=== PATIENT | female | born 1970 | race Two or more races ===

== ENCOUNTER 2024-05-12 22:19 | Emergency (ER) | payer OTHER ==
[~2024-05-12] VITALS: Ht 157.5 cm; Wt 69.9 kg
[~2024-05-12 22:19] MED LIST: BENTYL 20 MG; OMEPRAZOLE20 MG PO; PROTONIX40 MG PO
[2024-05-12] MEDS ORDERED: ATENOLOL25 MG PO (23:14)
[2024-05-12] MEDS ORDERED: LOSARTAN-HCTZ1 EAC2 PO (23:14)
[2024-05-13] MEDS ORDERED: MECLIZINE HCL 25 MG TABLET PO STA (00:29)
[2024-05-13 01:15] LABS: HEMATOCRIT 39.9 % (36.0-45.00); HEMOGLOBIN 13.7 g/dL (12.0-15.00); MEAN CELL VOLUME 86.5 fL (80.00-100.00); MEAN CORPUSCULAR HEMOGLOBIN 29.7 pg (27.00-32.0); MEAN CORPUSCULAR HGB CONC 34.3 g/dl (32.0-36.0); PLATELET COUNT 293 K/uL (150-450); RED BLOOD COUNT 4.61 M/uL (4.00-6.00)
[2024-05-13 01:16] LABS: PH,URINE 5.5 (5.0-8.0); URINE APPEARANCE Clear; URINE BILIRRUBIN Negative (NEGATIVE); URINE BLOOD Trace; URINE COLOR Yellow; URINE GLUCOSE Negative (NEGATIVE); URINE KETONE Negative (NEGATIVE); URINE LEUKOCYTE Moderate; URINE NITRATE Negative; URINE PROTEIN Negative (NEGATIVE); URINE UROBILINOGEN 0.2 E.U./dl
[2024-05-13 01:19] LABS: URINE BACTERIA 37.7 uL (0.0-1933); URINE EPITHELIAL CELLS 6.9 uL (0.0-38.8); URINE RBC 10.3 uL (0.0-20.8); URINE WBC 113.3 uL (0.0-23.2)
[2024-05-13 01:26] LABS: URINE CAST 0.15 uL (0.0-1.40)
[2024-05-13 01:32] LABS: BILIRUBIN TOTAL 0.75 mg/dL (0.3-1.2); CALCIUM 9.3 mg/dL (8.5-10.1); CREATININE SERUM 0.75 mg/dL (0.55-1.02); GFR 80.53; GLOBULINA 3.3 G/DL (2.4-3.5); POTASSIUM 3.76 mEq/L (3.5-5.1); TOTAL PROTEIN 7.3 gm/dL (6.4-8.2)
[2024-05-13] MEDS ORDERED: MECLIZINE HCL25 MG PO (04:02)
== END 2024-05-13 04:13 ==
LOC: ER 22:20
PROVIDERS: General Practice
DX: R42 Dizziness and giddiness (principal); Z87.828 Personal history of other (healed) physical injury and trauma; I10 Essential (primary) hypertension